=== PATIENT | female | born 1980 | race Caucasian/White ===

== ENCOUNTER 2017-02-18 20:10 | Emergency (ER) ==
[2017-02-18 20:29] VITALS: BP 122/63; TEMP 100.9; BMI 27.3
[2017-02-18] MEDS ORDERED: ZOFRAN 4 MG/2 ML IM STA (20:32)
[2017-02-18] MEDS ORDERED: DEMEROL 25 MG/ML VIAL IM STA (20:32)
--- NOTE | 2017-02-18 21:27 | CT ---
EXAM: CT right knee without intravenous contrast 02/18/2017. Sagittal and coronal reformatted image s obtained HISTORY: Pain COMPARISON: None. FINDINGS: Normal anatomic alignment. The osseous structures appear intact. There is no evidence of acute fracture or dislocation. The extensor mechanism is intact There is a small joint effusion. Edema is present within the soft tissues along the medial aspect of the knee. IMPRESSION: 1. No acute osseous abnormality. No fracture or dislocation. 2. Small joint effusion. 3. Edematous appearance within the soft tissues along the medial aspect of the knee. 4. If there is clinical desire to further characterize internal derangement then follow-up outpatien t MRI could be obtained.
--- NOTE | 2017-02-18 21:34 | ED.PDOC ---
General ED Provider: Dr. EMILY AGUILAR Chief Complaint: Knee Pain/Injury Stated Complaint: Hurting in the right knee, not able to walk. Time Seen by Physician: 21:32 Mode of Arrival: Walk-In Information Source: Patient, Family Primary Care Provider: MARLENY SABILLON Nursing and Triage Documentation Reviewed and Agree: No Reviewed sepsis parameters & appropriate labs ordered?: No System Inflammatory Response Syndrome: Not Applicable Sepsis Protocol: For patient's 13 years and over: Temp is 96.8 and below OR 101 and greater Pulse >90 BPM Resp >20/minute Acutely Altered Mental Status Are patient's symptoms suggestive of a new infection, such as: -Pneumonia -Skin, Soft Tissue -Endocarditis -UTI -Bone, Joint Infection -Implantable Device -Acute Abdominal Infection -Wound Infection -Meningitis -Blood Stream Catheter Infection -Unknown Musculoskeletal Complaint Exam - Knee Pain Complaint/Exam Mechanism of Injury: Reports: Trauma Symptoms Are: Still present Onset of Pain: Reports: Immediate Initial Severity: Severe Current Severity: Severe Location: Reports: Discrete Character: Reports: Aching, Throbbing Alleviating: Reports: None Aggravating: Reports: Movement, Weight bearing Associated Signs and Symptoms: Reports: Swelling. Denies: Redness, Bruising, Fever, Weakness, Numbness, Tingling Able to Bear Weight: No Septic Arthritis Risk Factors: Reports: None Gout Risk Factors: Reports: None Knee Findings: Present: Swelling, Ecchymosis Valentin Test Positive: No Gisele Test Positive: No Limited Range of Motion: Present: Active, Passive, Flexion, Extension Differential Diagnoses: Closed Fracture, Sprain Review of Systems - Review Of Systems Constitutional: Reports: No symptoms Eyes: Reports: No symptoms Ears, Nose, Mouth, Throat: Reports: No symptoms Respiratory: Reports: No symptoms Cardiac: Reports: No symptoms GI: Reports: No symptoms : Reports: No symptoms Musculoskeletal: Reports: Joint pain, Joint swelling Skin: Reports: No symptoms Neurological: Reports: No symptoms Endocrine: Reports: No symptoms Hematologic/Lymphatic: Reports: No symptoms All Other Systems: Reviewed and Negative Past Medical History - Past Medical History Previously Healthy: Yes Endocrine: Reports: None Cardiovascular: Reports: None Respiratory: Reports: None Hematological: Reports: None Gastrointestinal: Reports: None Genitourinary: Reports: None Neuro/Psych: Reports: None Musculoskeletal: Reports: None Cancer: Reports: None Last Menstrual Period: 2 weeks ago - Surgical History General Surgical History: Reports: Tubal ligation - Family History Family History: Reports: None - Social History Smoking Status: Former smoker Hx Substance Use: No Alcohol Screening: Occasionally - Immunizations Tetanus Shot up to Date: Yes Physical Exam - Physical Exam Appearance: Well-nourished Pain Distress: Moderate Eyes: YARED, EOMI, Conjunctiva clear ENT: Ears normal, Nose normal, Oropharynx normal Respiratory: Airway patent, Breath sounds clear, Breath sounds equal, Respirations nonlabored Cardiovascular: RRR, Pulses normal, No rub, No murmur GI/: Soft, Nontender, No masses, Bowel sounds normal, No Organomegaly Musculoskeletal: No edema, No calf tenderness, Limited ROM, Limited strength Skin: Warm, Dry, Normal color Neurological: Sensation intact, Motor intact, Reflexes intact, Cranial nerves intact, Alert, Oriented Psychiatric: Affect appropriate, Mood appropriate Critical Care Note - Critical Care Note Total Time (mins): 10 Course - Course Orders, Labs, Meds: Orders Category Date Time Status Meperidine HCl/Pf [Demerol 25 mg/ml Vial] MEDS 02/18/17 20:32 Discontinued 25 mg IM ONCE STA Ondansetron HCl/Pf [Zofran 4 mg/2 ml] MEDS 02/18/17 20:32 Discontinued 4 mg IM ONCE STA CT KNEE RIGHT WITHOUT CONTRAST Stat RADS 02/18/17 20:32 Completed Medications Discontinued Medications Generic Name Dose Route Start Last Admin Trade Name Freq PRN Reason Stop Dose Admin Meperidine HCl 25 mg 02/18/17 20:32 02/18/17 20:44 Demerol 25 Mg/Ml Vial IM 02/18/17 20:33 25 mg ONCE STA Administration Ondansetron HCl 4 mg 02/18/17 20:32 02/18/17 20:44 Zofran 4 Mg/2 Ml IM 02/18/17 20:33 4 mg ONCE STA Administration Vital Signs: Temp Pulse Resp BP Pulse Ox 02/18/17 20:13 100.9 F H 101 H 20 122/63 98 Departure - Departure Time of Disposition: 21:35 Disposition: HOME SELF-CARE Discharge Problem: Right knee sprain Qualifiers: Encounter type: initial encounter Involved ligament of knee: other ligament Qualified Code(s): S83.8X1A - Sprain of other specified parts of right knee, initial encounter Instructions: Knee Sprain (ED) Condition: Stable Pt referred to PMD for follow-up: Yes Additional Instructions: rest hot pack needs f/u with PMD to get MRI done Prescriptions: Hydrocodone Bit/Acetaminophen [[place] 7.5-325] 1 each PO Q8H #14 tablet Allergies/Adverse Reactions: Allergies No Known Allergies Allergy (Unverified 02/18/17 20:21) Home Medications: Ambulatory Orders Hydrocodone Bit/Acetaminophen [[place] 7.5-325] 1 each PO Q8H #14 tablet 02/18/17 Sertraline HCl [Zoloft] 50 mg PO DAILY 02/18/17 Disposition Discussed With: Patient
== END 2017-02-18 21:43 | disposition home or self-care (01) ==
LOC: ED 20:10
DX: S83.8X1A Sprain of other specified parts of right knee, initial encounter (principal); X50.1XXA Overexertion from prolonged static or awkward postures, initial encounter
CPT/HCPCS: 96372; 99282